=== PATIENT | female | born 1970 | race African-American/Black ===

== ENCOUNTER 2016-11-25 01:32 | Emergency (ER) | payer OTHER ==
[~2016-11-25] VITALS: Ht 165.1 cm; Wt 50.0 kg
[2016-11-25] MEDS ORDERED: SODIUM CHLORIDE 0.9% 500 ML IV ONE (02:19)
[2016-11-25] MEDS ORDERED: ACETAMINOPHEN 325MG TABLET PO ONE (02:30)
[2016-11-25 03:10] LABS: CHLORIDE 107 mEq/L (98-107); HEMATOCRIT. 28.3 % (36.0-48.0); HEMOGLOBIN. 9.4 g/dL (12.0-16.0); MEAN CORPUSCULAR VOLUME 69.4 fL (81.0-99.0); MEAN PLATELET VOLUME 10.4 fl (7.4-10.4); PLATELET 193 x1000/uL (130-400); RED BLOOD CELL COUNT 4.08 mill/uL (4.2-5.4); RED CELL DISTRIBUTION WIDTH 20.2 % (11.6-14.6)
[2016-11-25 03:19] LABS: HCG SCREEN NEGATIVE
[2016-11-25 03:26] LABS: CARBON DIOXIDE 24 mEq/L (21-32)
[2016-11-25 03:27] LABS: CARBAMAZEPINE < 0.5 ug/mL (4-12); PHENYTOIN < 0.4 ug/mL (10-20); VALPROIC ACID < 3.0 ug/mL (50-100)
[2016-11-25 03:28] LABS: PHENOBARBITAL < 2.1 ug/mL (15.0-40.0)
[2016-11-25 04:47] LABS: PLATELET ESTIMATE NORMAL
[2016-11-25 05:10] VITALS: BP 106/60
== END 2016-11-25 05:13 | disposition home or self-care (01) ==
LOC: ER 01:32
DX: R56.9 Unspecified convulsions (principal); R51 Headache
CPT/HCPCS: 36415; 80053; 80156; 80165; 80184; 80185; 84703; 85025; 93005; 96360; 96361; 99285; J7040; Z7610

== ENCOUNTER 2017-02-13 05:59 | Inpatient (IN) | payer OTHER ==
[~2017-02-13] VITALS: Ht 144.8 cm; Wt 46.3 kg
[2017-02-13 07:00] LABS: EOSINOPHILS % 0.6 % (0.0-5.0); HEMATOCRIT. 31.3 % (36.0-48.0); HEMOGLOBIN. 10.2 g/dL (12.0-16.0); LYMPHOCYTES % 12.5 % (20.0-50.0); MEAN CORPUSCULAR HEMOGLOBIN 22.9 pg (28.0-32.0); MEAN CORPUSCULAR VOLUME 70.4 fL (81.0-99.0); MEAN PLATELET VOLUME 10.5 fl (7.4-10.4); MONOCYTES % 8.4 % (2.0-8.0); NEUTROPHILS % 77.5 % (40.0-76.0); PLATELET 195 x1000/uL (130-400); RED BLOOD CELL COUNT 4.44 mill/uL (4.2-5.4); RED CELL DISTRIBUTION WIDTH 19.8 % (11.6-14.6)
[2017-02-13 07:06] LABS: CHLORIDE 110 mEq/L (98-107)
[2017-02-13 07:09] LABS: CARBON DIOXIDE 26 mEq/L (21-32)
[2017-02-13 07:22] LABS: CLARITY URINE CLEAR (CLEAR); COLOR URINE YELLOW (YELLOW); GLUCOSE URINE NEGATIVE (NEGATIVE); KETONES URINE NEGATIVE (NEGATIVE); LEUKOCYTE ESTERASE URINE NEGATIVE (NEGATIVE); NITRITE URINE NEGATIVE (NEGATIVE); OCCULT BLOOD URINE 2+ (NEGATIVE); PROTEIN URINE NEGATIVE (NEGATIVE); SPECIFIC GRAVITY URINE 1.013 (1.005-1.030)
[2017-02-13] MEDS ORDERED: DIAZEPAM 5 MG/ML 2ML CPJ IV ONE (09:30)
[2017-02-13] MEDS ORDERED: LAMOTRIGINE 100MG TABLET PO STA (10:36)
[2017-02-13] MEDS ORDERED: LEVETIRACETAM 500MG PREMIX 100 ML IV ONE (11:00)
[2017-02-13] MEDS ORDERED: LORAZEPAM 2MG/ML CPJ IV PRN (12:00)
[2017-02-13] MEDS ORDERED: ONDANSETRON HCL 4MG/2ML VIAL IV PRN (12:00)
[2017-02-13] MEDS ORDERED: CLONIDINE 0.1MG TABLET PO PRN (12:00)
[2017-02-13] MEDS ORDERED: ACETAMINOPHEN 325MG TABLET PO PRN (12:00)
[2017-02-13 14:15] VITALS: BP 119/57
[2017-02-13 14:22] VITALS: BP 119/57
[2017-02-13 14:58] LABS: *AMPHETAMINES SCREEN URINE NEGATIVE (NEGATIVE); *BARBITURATES SCREEN URINE NEGATIVE (NEGATIVE); *BENZODIAZEPINES SCREEN URINE NEGATIVE (NEGATIVE); *COCAINE SCREEN URINE NEGATIVE (NEGATIVE); CANNABINOID URINE SCREEN NEGATIVE (NEGATIVE); METHADONE URINE SCREEN NEGATIVE (NEGATIVE); OPIATES URINE SCREEN NEGATIVE (NEGATIVE); PHENCYCLIDINE URINE SCREEN NEGATIVE (NEGATIVE)
[2017-02-13 16:22] VITALS: BP 110/60
[2017-02-13 16:48] LABS: CREATINE KINASE 82 IU/L (26-192); TROPONIN I < 0.02 ng/mL (0.00-0.04)
[2017-02-13] MEDS: DEXT 5%/0.45% NACL KCL 20MEQ/L 1,000 ML IV SCH (18:58)
[2017-02-13 20:00] VITALS: BP 126/69
[2017-02-13] MEDS: LEVETIRACETAM 500 MG in SODIUM CHLORIDE 0.9% 100 ML IV SCH (22:27)
[2017-02-13 23:04] LABS: CREATINE KINASE 97 IU/L (26-192); TROPONIN I < 0.02 ng/mL (0.00-0.04)
[2017-02-14] VITALS: BP 113/67
[2017-02-14 04:00] VITALS: BP 113/80
[2017-02-14] MEDS: DEXT 5%/0.45% NACL KCL 20MEQ/L 1,000 ML IV SCH ×2 (04:43→16:41)
[2017-02-14 06:35] LABS: HEMATOCRIT. 31.3 % (36.0-48.0); HEMOGLOBIN. 10.2 g/dL (12.0-16.0); MEAN CORPUSCULAR HEMOGLOBIN 22.8 pg (28.0-32.0); MEAN CORPUSCULAR VOLUME 69.9 fL (81.0-99.0); MEAN PLATELET VOLUME 10.4 fl (7.4-10.4); PLATELET 229 x1000/uL (130-400); RED BLOOD CELL COUNT 4.48 mill/uL (4.2-5.4)
[2017-02-14 06:48] LABS: CHLORIDE 108 mEq/L (98-107)
[2017-02-14 07:07] LABS: CARBON DIOXIDE 24 mEq/L (21-32); HDL CHOLESTEROL 44 mg/dL (40-59); LDL CHOLESTEROL 121 mg/dL (5-100)
[2017-02-14 08:00] VITALS: BP 97/55
[2017-02-14 09:23] LABS: BG BASE EXCESS -0.2 mmol/L (-2.0-2.0); BG CARBOXYHEMOGLOBIN 0.3 % (0.5-1.5); BG DEOXYHEMOGLOBIN 2.7 % (0.0-5.0); BG FRACTION INSPIRED OXYGEN 21; BG HCO3 ACT 23.4 mmol/L (22.0-26.0); BG METHEMOGLOBIN 0.2 % (0.0-1.5); BG OXYGEN SATURATION 97.3 % (92.0-98.5); BG OXYHEMOGLOBIN 96.8 % (94.0-97.0); BG PCO2 34.5 mmHg (35.0-45.0); BG PH 7.449 (7.350-7.450); BG PO2 105.8 mmHg (75.0-100.0); BG SAMPLE SITE RIGHT RADIAL; BG TOTAL HEMOGLOBIN 10.8 g/dL (12.0-18.0); BG VENT MODE ROOM AIR
[2017-02-14 12:00] VITALS: BP 100/56
[2017-02-14 13:21] LABS: PLATELET ESTIMATE NORMAL
[2017-02-14] MEDS: LEVETIRACETAM 500 MG in SODIUM CHLORIDE 0.9% 100 ML IV SCH (13:40)
[2017-02-14 16:00] VITALS: BP 102/58
[2017-02-14 20:00] VITALS: BP 102/52
[2017-02-15] VITALS: BP 110/60
[2017-02-15] MEDS: LEVETIRACETAM 500 MG in SODIUM CHLORIDE 0.9% 100 ML IV SCH ×3 (00:10→20:33)
[2017-02-15] MEDS: DEXT 5%/0.45% NACL KCL 20MEQ/L 1,000 ML IV SCH ×3 (00:10→20:35)
[2017-02-15 04:51] VITALS: BP 108/68
[2017-02-15 06:42] LABS: BASOPHILS % 0.8 % (0.0-2.0); EOSINOPHILS % 2.2 % (0.0-5.0); HEMATOCRIT. 29.7 % (36.0-48.0); HEMOGLOBIN. 9.7 g/dL (12.0-16.0); MEAN CORPUSCULAR HEMOGLOBIN 23.1 pg (28.0-32.0); MEAN CORPUSCULAR VOLUME 70.6 fL (81.0-99.0); MEAN PLATELET VOLUME 10.2 fl (7.4-10.4); MONOCYTES % 12.2 % (2.0-8.0); NEUTROPHILS % 66.8 % (40.0-76.0); PLATELET 213 x1000/uL (130-400); RED BLOOD CELL COUNT 4.21 mill/uL (4.2-5.4); RED CELL DISTRIBUTION WIDTH 19.8 % (11.6-14.6)
[2017-02-15 07:22] LABS: CARBON DIOXIDE 26 mEq/L (21-32); CHLORIDE 110 mEq/L (98-107)
[2017-02-15 08:00] VITALS: BP 105/55
[2017-02-15 11:36] VITALS: BP 99/55
[2017-02-15 16:00] VITALS: BP 115/61
[2017-02-15 20:00] VITALS: BP 108/60
[2017-02-16] VITALS: BP 99/56
[2017-02-16 04:00] VITALS: BP 92/51
[2017-02-16] MEDS: DEXT 5%/0.45% NACL KCL 20MEQ/L 1,000 ML IV SCH (05:46)
[2017-02-16 08:00] VITALS: BP 95/49
[2017-02-16] MEDS: LEVETIRACETAM 500 MG in SODIUM CHLORIDE 0.9% 100 ML IV SCH (09:42)
[2017-02-16] MEDS ORDERED: KEPP500 PO (09:57)
[2017-02-16 12:00] VITALS: BP 99/55
[2017-02-16 13:46] VITALS: BP 99/55
== END 2017-02-16 15:35 | disposition home or self-care (01) | DRG 53 ==
LOC: ER 05:59 → 6WST 11:00 → EDBEDREQ 11:02 → ENRESERV 11:33
PROVIDERS: ADMIT Internal Medicine; ATTEND Internal Medicine
DX: G40.919 Epilepsy, unspecified, intractable, without status epilepticus (principal); D64.9 Anemia, unspecified; R51 Headache; Z86.011 Personal history of benign neoplasm of the brain; Z91.14 Patient's other noncompliance with medication regimen
CPT/HCPCS: 36415; 36600; 70450; 70551; 80048; 80053; 80061; 80185; 80305; 81001; 82375; 82542; 82550; 82805; 84443; 84484; 85025; 93970; 96365; 96375; 99285; G0482; J1953; J7050

== ENCOUNTER 2017-05-11 01:15 | Emergency (ER) | payer MEDICAID, OTHER ==
[~2017-05-11] VITALS: Ht 165.1 cm; Wt 52.0 kg
[~2017-05-11 01:15] MED LIST: KEPP500 PO
[2017-05-11 02:34] LABS: HEMATOCRIT. 31.4 % (36.0-48.0); HEMOGLOBIN. 10.2 g/dL (12.0-16.0); MEAN CORPUSCULAR HEMOGLOBIN 22.3 pg (28.0-32.0); MEAN CORPUSCULAR VOLUME 68.5 fL (81.0-99.0); MEAN PLATELET VOLUME 10.4 fl (7.4-10.4); PLATELET 171 x1000/uL (130-400); RED BLOOD CELL COUNT 4.58 mill/uL (4.2-5.4); RED CELL DISTRIBUTION WIDTH 19.4 % (11.6-14.6)
[2017-05-11 02:35] LABS: CLARITY URINE CLEAR (CLEAR); COLOR URINE YELLOW (YELLOW); KETONES URINE TRACE (NEGATIVE); LEUKOCYTE ESTERASE URINE NEGATIVE (NEGATIVE); NITRITE URINE NEGATIVE (NEGATIVE); OCCULT BLOOD URINE NEGATIVE (NEGATIVE); PH URINE 5.5 (4.5-8.0); PROTEIN URINE NEGATIVE (NEGATIVE); SPECIFIC GRAVITY URINE 1.013 (1.005-1.030)
[2017-05-11 02:45] LABS: *AMPHETAMINES SCREEN URINE NEGATIVE (NEGATIVE); *BARBITURATES SCREEN URINE NEGATIVE (NEGATIVE); *BENZODIAZEPINES SCREEN URINE NEGATIVE (NEGATIVE); *COCAINE SCREEN URINE NEGATIVE (NEGATIVE); CANNABINOID URINE SCREEN NEGATIVE (NEGATIVE); METHADONE URINE SCREEN NEGATIVE (NEGATIVE); OPIATES URINE SCREEN NEGATIVE (NEGATIVE); PHENCYCLIDINE URINE SCREEN NEGATIVE (NEGATIVE)
[2017-05-11 02:51] LABS: CARBON DIOXIDE 22 mEq/L (21-32); CHLORIDE 110 mEq/L (98-107); ETHANOL BLOOD < 10 mg/dL
[2017-05-11] MEDS ORDERED: POTASSIUM CHLORIDE 20MEQ TABLET SR PO ONE (04:45)
[2017-05-11] MEDS ORDERED: ONDANSETRON HCL 4MG/2ML VIAL IV SCH (04:45)
[2017-05-11 05:33] VITALS: BP 104/68
[2017-05-11 06:41] LABS: PLATELET ESTIMATE NORMAL
== END 2017-05-11 05:29 | disposition home or self-care (01) ==
LOC: ER 01:15
DX: G40.909 Epilepsy, unspecified, not intractable, without status epilepticus (principal); E87.6 Hypokalemia; E03.9 Hypothyroidism, unspecified
CPT/HCPCS: 36415; 80053; 80305; 81003; 81025; 82962; 83690; 84443; 85025; 93005; 96374; 99285; G0482; J2405; Z7610

== ENCOUNTER 2018-03-23 09:26 | Emergency (ER) | payer MEDICAID, OTHER ==
[~2018-03-23] VITALS: Ht 162.6 cm; Wt 70.0 kg
[2018-03-23] MEDS ORDERED: SODIUM CHLORIDE 0.9% 1,000 ML IV ONE (11:12)
[2018-03-23] MEDS ORDERED: LEVETIRACETAM 1000MG/100ML 100 ML IV ONE (11:15)
[2018-03-23] MEDS ORDERED: LAMOTRIGINE 25MG TABLET PO STA (12:28)
[2018-03-23 12:45] LABS: HEMATOCRIT. 28.3 % (36.0-48.0); HEMOGLOBIN. 9.3 g/dL (12.0-16.0); MEAN CORPUSCULAR HEMOGLOBIN 22.2 pg (28.0-32.0); MEAN CORPUSCULAR VOLUME 67.9 fL (81.0-99.0); MEAN PLATELET VOLUME 9.7 fl (7.4-10.4); PLATELET 154 x1000/uL (130-400); RED BLOOD CELL COUNT 4.17 mill/uL (4.2-5.4); RED CELL DISTRIBUTION WIDTH 20.5 % (11.6-14.6)
[2018-03-23 12:52] LABS: CHLORIDE 111 mEq/L (98-107)
[2018-03-23 13:03] LABS: ETHANOL BLOOD < 10 mg/dL
[2018-03-23] MEDS: KETOROLAC 30MG/ML VIAL IV NR ×2 (13:05→15:27)
[2018-03-23 13:26] LABS: PLATELET ESTIMATE NORMAL
[2018-03-23 14:12] LABS: CLARITY URINE CLEAR (CLEAR); COLOR URINE YELLOW (YELLOW); KETONES URINE NEGATIVE (NEGATIVE); LEUKOCYTE ESTERASE URINE TRACE (NEGATIVE); NITRITE URINE NEGATIVE (NEGATIVE); OCCULT BLOOD URINE NEGATIVE (NEGATIVE); PROTEIN URINE NEGATIVE (NEGATIVE); SPECIFIC GRAVITY URINE 1.011 (1.005-1.030)
[2018-03-23 15:05] LABS: *AMPHETAMINES SCREEN URINE NEGATIVE (NEGATIVE); *BARBITURATES SCREEN URINE NEGATIVE (NEGATIVE); *BENZODIAZEPINES SCREEN URINE NEGATIVE (NEGATIVE)
[2018-03-23 15:06] LABS: *COCAINE SCREEN URINE NEGATIVE (NEGATIVE); CANNABINOID URINE SCREEN NEGATIVE (NEGATIVE); METHADONE URINE SCREEN NEGATIVE (NEGATIVE); OPIATES URINE SCREEN NEGATIVE (NEGATIVE); PHENCYCLIDINE URINE SCREEN NEGATIVE (NEGATIVE)
[2018-03-23] MEDS ORDERED: CEFTRIAXONE 2 G PREMIX 50 ML IV ONE (15:15)
[2018-03-23 16:21] VITALS: BP 95/58
[2018-03-24] MEDS ORDERED: LAMOTRIGINE 25MG TABLET PO SCH (09:00)
== END 2018-03-23 16:25 | disposition home or self-care (01) ==
LOC: ER 09:26
DX: G40.909 Epilepsy, unspecified, not intractable, without status epilepticus (principal); Z86.03 Personal history of neoplasm of uncertain behavior; R51 Headache
CPT/HCPCS: 36415; 70450; 80053; 80305; 81003; 81025; 85025; 87077; 87086; 87186; 93005; 96365; 96375; 96376; 99285; G0482; J0696; J1885; J1953; J7030

== ENCOUNTER 2018-11-25 05:56 | Emergency (ER) | payer MEDICAID, OTHER ==
[~2018-11-25] VITALS: Ht 157.5 cm; Wt 50.0 kg
[2018-11-25 06:51] LABS: BASOPHILS % 1.2 % (0.0-2.0); EOSINOPHILS % 2.7 % (0.0-5.0); HEMATOCRIT. 28.7 % (36.0-48.0); HEMOGLOBIN. 9.4 g/dL (12.0-16.0); LYMPHOCYTES % 36.5 % (20.0-50.0); MEAN CORPUSCULAR VOLUME 67.3 fL (81.0-99.0); MEAN PLATELET VOLUME 8.8 fl (7.4-10.4); MONOCYTES % 14.1 % (2.0-8.0); NEUTROPHILS % 45.5 % (40.0-76.0); PLATELET 210 x1000/uL (130-400); RED BLOOD CELL COUNT 4.26 mill/uL (4.2-5.4); RED CELL DISTRIBUTION WIDTH 20.3 % (11.6-14.6)
[2018-11-25 06:52] LABS: CLARITY URINE CLEAR (CLEAR); COLOR URINE YELLOW (YELLOW); KETONES URINE NEGATIVE (NEGATIVE); LEUKOCYTE ESTERASE URINE NEGATIVE (NEGATIVE); NITRITE URINE NEGATIVE (NEGATIVE); OCCULT BLOOD URINE NEGATIVE (NEGATIVE); PROTEIN URINE NEGATIVE (NEGATIVE); SPECIFIC GRAVITY URINE 1.009 (1.005-1.030)
[2018-11-25 06:57] LABS: CHLORIDE 109 mEq/L (98-107)
[2018-11-25 07:01] LABS: ETHANOL BLOOD < 10 mg/dL
[2018-11-25 07:08] LABS: *AMPHETAMINES SCREEN URINE NEGATIVE (NEGATIVE); *BARBITURATES SCREEN URINE NEGATIVE (NEGATIVE); *BENZODIAZEPINES SCREEN URINE NEGATIVE (NEGATIVE); *COCAINE SCREEN URINE NEGATIVE (NEGATIVE); METHADONE URINE SCREEN NEGATIVE (NEGATIVE); OPIATES URINE SCREEN NEGATIVE (NEGATIVE); PHENCYCLIDINE URINE SCREEN NEGATIVE (NEGATIVE)
[2018-11-25 07:09] LABS: CANNABINOID URINE SCREEN NEGATIVE (NEGATIVE)
[2018-11-25] MEDS ORDERED: LAMOTRIGINE 100MG TABLET PO STA (07:22)
[2018-11-25 07:30] VITALS: BP 109/61
[2018-11-25 07:47] LABS: PLATELET ESTIMATE NORMAL
== END 2018-11-25 08:57 | disposition home or self-care (01) ==
LOC: ER 05:56
DX: G40.89 Other seizures (principal); Z79.899 Other long term (current) drug therapy
CPT/HCPCS: 36415; 80305; 80320; 81025; 82962; 99283; G0480

== ENCOUNTER 2019-03-01 20:42 | Emergency (ER) | payer OTHER ==
[~2019-03-01] VITALS: Ht 157.5 cm; Wt 55.0 kg
[2019-03-01] MEDS ORDERED: LAMOTRIGINE 25MG TABLET PO STA (22:12)
[2019-03-01] MEDS ORDERED: SODIUM CHLORIDE 0.9% 1,000 ML IV ONE (22:12)
[2019-03-01] MEDS ORDERED: ACETAMINOPHEN 325MG TABLET PO ONE (22:15)
[2019-03-01 23:02] LABS: BASOPHILS % 1.1 % (0.0-2.0); EOSINOPHILS % 0.3 % (0.0-5.0); HEMOGLOBIN. 9.5 g/dL (12.0-16.0); LYMPHOCYTES % 13.1 % (20.0-50.0); MEAN CORPUSCULAR HEMOGLOBIN 22.3 pg (28.0-32.0); MEAN CORPUSCULAR VOLUME 67.8 fL (81.0-99.0); MEAN PLATELET VOLUME 9.8 fl (7.4-10.4); MONOCYTES % 8.9 % (2.0-8.0); NEUTROPHILS % 76.6 % (40.0-76.0); PLATELET 209 x1000/uL (130-400); RED BLOOD CELL COUNT 4.27 mill/uL (4.2-5.4); RED CELL DISTRIBUTION WIDTH 19.8 % (11.6-14.6)
[2019-03-01 23:11] LABS: HCG SCREEN NEGATIVE
[2019-03-01 23:14] LABS: CHLORIDE 109 mEq/L (98-107)
[2019-03-01 23:15] LABS: PLATELET ESTIMATE NORMAL
[2019-03-02] VITALS: BP 122/52
== END 2019-03-02 00:03 | disposition home or self-care (01) ==
LOC: ER 20:42
DX: G40.909 Epilepsy, unspecified, not intractable, without status epilepticus (principal); R03.0 Elevated blood-pressure reading, without diagnosis of hypertension; D64.9 Anemia, unspecified; R51 Headache
CPT/HCPCS: 36415; 80053; 82962; 84703; 85025; 99283; J7030

== ENCOUNTER 2019-05-03 09:01 | Emergency (ER) | payer OTHER ==
[~2019-05-03] VITALS: Ht 149.9 cm; Wt 48.0 kg
[2019-05-03] MEDS ORDERED: IBUPROFEN 600MG TABLET PO STA (11:04)
[2019-05-03 12:34] VITALS: BP 100/50
== END 2019-05-03 12:34 | disposition home or self-care (01) ==
LOC: ER 09:01
DX: M79.645 Pain in left finger(s) (principal)
CPT/HCPCS: 73140; 99283

== ENCOUNTER 2019-12-19 18:48 | Emergency (ER) | payer OTHER ==
[~2019-12-19] VITALS: Ht 162.6 cm; Wt 50.0 kg
[2019-12-19] MEDS ORDERED: SODIUM CHLORIDE 0.9% 1,000 ML IV ONE (21:27)
[2019-12-19] MEDS ORDERED: KETOROLAC 30MG/ML VIAL IV STA (21:27)
[2019-12-19] MEDS ORDERED: ONDANSETRON HCL 4MG/2ML INJ IV STA (21:27)
[2019-12-19 22:04] LABS: HEMATOCRIT. 29.3 % (36.0-48.0); HEMOGLOBIN. 9.2 g/dL (12.0-16.0); MEAN CORPUSCULAR VOLUME 66.6 fL (81.0-99.0); MEAN PLATELET VOLUME 10.1 fl (7.4-10.4); PLATELET 228 x1000/uL (130-400); RED BLOOD CELL COUNT 4.39 mill/uL (4.2-5.4); RED CELL DISTRIBUTION WIDTH 19.8 % (11.6-14.6)
[2019-12-19 22:09] LABS: CHLORIDE 106 mEq/L (98-107)
[2019-12-19 22:10] LABS: CLARITY URINE CLEAR (CLEAR); COLOR URINE YELLOW (YELLOW); KETONES URINE TRACE (NEGATIVE); LEUKOCYTE ESTERASE URINE 1+ (NEGATIVE); NITRITE URINE POSITIVE (NEGATIVE); OCCULT BLOOD URINE NEGATIVE (NEGATIVE); PH URINE 6.5 (4.5-8.0); PROTEIN URINE NEGATIVE (NEGATIVE); SPECIFIC GRAVITY URINE 1.013 (1.005-1.030)
[2019-12-19 22:14] LABS: ETHANOL BLOOD < 10 mg/dL
[2019-12-19 22:25] LABS: HCG SCREEN NEGATIVE
[2019-12-19 22:30] LABS: *AMPHETAMINES SCREEN URINE NEGATIVE (NEGATIVE)
[2019-12-19] MEDS ORDERED: CEFTRIAXONE 1 G PREMIX 50 ML IV ONE (22:30)
[2019-12-19 22:31] LABS: *BENZODIAZEPINES SCREEN URINE NEGATIVE (NEGATIVE); *COCAINE SCREEN URINE NEGATIVE (NEGATIVE); CANNABINOID URINE SCREEN NEGATIVE (NEGATIVE); METHADONE URINE SCREEN NEGATIVE (NEGATIVE); OPIATES URINE SCREEN NEGATIVE (NEGATIVE); PHENCYCLIDINE URINE SCREEN NEGATIVE (NEGATIVE)
[2019-12-19 22:32] LABS: *BARBITURATES SCREEN URINE NEGATIVE (NEGATIVE)
[2019-12-19 22:43] LABS: PLATELET ESTIMATE NORMAL
[2019-12-19] MEDS ORDERED: LEVETIRACETAM 500MG TABLET PO ONE (22:45)
[2019-12-19 23:50] VITALS: BP 131/72
== END 2019-12-20 00:30 | disposition home or self-care (01) ==
LOC: ER 18:48
DX: G40.909 Epilepsy, unspecified, not intractable, without status epilepticus (principal); N30.90 Cystitis, unspecified without hematuria
CPT/HCPCS: 36415; 74176; 80053; 80305; 80320; 81003; 81025; 83690; 84703; 85025; 93005; 96365; 96375; 99285; J0696; J1885; J2405; J7030; G0480

== ENCOUNTER 2021-05-16 21:39 | Emergency (ER) | payer MEDICAID, OTHER ==
[~2021-05-16] VITALS: Ht 160 cm; Wt 65.0 kg
[2021-05-16] MEDS ORDERED: MORPHINE SULFATE 4 MG/ML CPJ (NOT FOR IM USE) IV STA (23:20)
[2021-05-16] MEDS ORDERED: ONDANSETRON HCL 4MG/2ML INJ IV STA (23:20)
[2021-05-16] MEDS ORDERED: LEVETIRACETAM 500MG PREMIX 100 ML IV ONE (23:30)
[2021-05-16 23:48] LABS: HEMATOCRIT. 24.7 % (36.0-48.0); HEMOGLOBIN. 7.7 g/dL (12.0-16.0); MEAN CORPUSCULAR HEMOGLOBIN 18.8 pg (28.0-32.0); MEAN CORPUSCULAR VOLUME 60.2 fL (81.0-99.0); MEAN PLATELET VOLUME 9.1 fl (7.4-10.4); PLATELET 206 x1000/uL (130-400); RED CELL DISTRIBUTION WIDTH 20.4 % (11.6-14.6)
[2021-05-16 23:50] LABS: CHLORIDE 111 mEq/L (98-107)
[2021-05-16] MEDS ORDERED: LAMOTRIGINE 25MG TABLET PO STA (23:52)
[2021-05-17 03:20] LABS: PLATELET ESTIMATE NORMAL
[2021-05-17 03:50] VITALS: BP 100/48
== END 2021-05-17 03:50 | disposition home or self-care (01) ==
LOC: ER 21:39
DX: R56.9 Unspecified convulsions (principal); Z98.890 Other specified postprocedural states
CPT/HCPCS: 36415; 80053; 85025; 93005; 96374; 96375; 99285

== ENCOUNTER 2023-08-08 19:26 | Emergency (ER) | payer OTHER, MEDICAID ==
[~2023-08-08] VITALS: Ht 162.6 cm; Wt 58.0 kg
[~2023-08-08 19:26] MED LIST changes: +FERR325T6 MT; -KEPP500 PO; +LAM25 PO; +LEVO50TA8 PO; +ZONI100C45 PO
[2023-08-08 19:59] VITALS: O2SAT 99
[2023-08-08] MEDS: IBUPROFEN 600MG TABLET PO ONE (22:50)
[2023-08-08 22:59] VITALS: BP 136/51; PULSE 79; RESP 18; TEMP 98.1
== END 2023-08-08 23:00 | disposition home or self-care (01) ==
LOC: ER 19:26
DX: S09.90XA Unspecified injury of head, initial encounter (principal); Z98.890 Other specified postprocedural states; Z88.8 Allergy status to other drugs, medicaments and biological substances; X58.XXXA Exposure to other specified factors, initial encounter; Y93.89 Activity, other specified; Y92.89 Other specified places as the place of occurrence of the external cause; Y99.8 Other external cause status
CPT/HCPCS: 81025; 99284

== ENCOUNTER 2024-06-20 14:01 | Emergency (ER) | payer MEDICAID ==
[~2024-06-20] VITALS: Ht 160 cm; Wt 50.0 kg
[~2024-06-20 14:01] MED LIST changes: -LAM25 PO; +LAMO25TA9 MT; -ZONI100C45 PO
[2024-06-20 14:05] VITALS: O2SAT 99
[2024-06-20 14:26] VITALS: TEMP 36.9
[2024-06-20] MEDS: PHENYTOIN SODIUM EXTENDED 100MG CAPSULE PO ONE (14:50)
[2024-06-20] MEDS: SODIUM CHLORIDE 0.9% 1,000 ML IV ONE (14:50)
[2024-06-20 17:56] LABS: CHLORIDE 110 mEq/L (98-107); POTASSIUM 3.8 mEq/L (3.5-5.1); SODIUM 141 mEq/L (136-145)
[2024-06-20 17:57] LABS: CALCIUM 8.7 mg/dL (8.7-10.4); CARBON DIOXIDE 25 mEq/L (21-32); PROTHROMBIN TIME 11.1 sec (9.6-11.0)
[2024-06-20 18:00] LABS: HEMATOCRIT. 30.3 % (36.0-48.0); HEMOGLOBIN. 9.1 g/dL (12.0-16.0); MEAN CORPUSCULAR HEMOGLOBIN 22.3 pg (28.0-32.0); MEAN CORPUSCULAR VOLUME 74.5 fL (81.0-99.0); MEAN PLATELET VOLUME 9.1 fl (7.4-10.4); PLATELET 183 x1000/uL (130-400); RED BLOOD CELL COUNT 4.06 mill/uL (4.2-5.4); RED CELL DISTRIBUTION WIDTH 26.8 % (11.6-14.6); WHITE BLOOD COUNT 4.9 x1000/uL (4.5-11.0)
[2024-06-20 18:02] LABS: CREATININE 0.5 mg/dL (0.6-1.0); GLUCOSE 100 mg/dL (70-105)
[2024-06-20 18:03] LABS: DIFFERENTIAL COMMENT 1; PHENYTOIN 5.3 ug/mL (10-20); UREA NITROGEN BLOOD 6 mg/dL (9-23)
[2024-06-20 18:05] LABS: CARBAMAZEPINE < 0.4 ug/mL (4-12); ETHANOL BLOOD < 10 mg/dL (<10); VALPROIC ACID < 3.0 ug/mL (50-100)
[2024-06-20 18:06] LABS: THYROID STIMULATING HORMONE 2.24 uIU/mL (0.55-4.78)
[2024-06-20 19:48] VITALS: BP 108/53; PULSE 71; RESP 17; O2SAT 100
[2024-06-20 19:56] LABS: CLARITY URINE CLEAR (CLEAR); COLOR URINE YELLOW (YELLOW); GLUCOSE URINE NEGATIVE (NEGATIVE); KETONES URINE NEGATIVE (NEGATIVE); LEUKOCYTE ESTERASE URINE NEGATIVE (NEGATIVE); NITRITE URINE NEGATIVE (NEGATIVE); OCCULT BLOOD URINE NEGATIVE (NEGATIVE); PROTEIN URINE NEGATIVE (NEGATIVE); SPECIFIC GRAVITY URINE 1.005 (1.005-1.030)
[2024-06-20 20:03] LABS: *AMPHETAMINES SCREEN URINE NEGATIVE (NEGATIVE); *BARBITURATES SCREEN URINE NEGATIVE (NEGATIVE); *BENZODIAZEPINES SCREEN URINE NEGATIVE (NEGATIVE); *COCAINE SCREEN URINE NEGATIVE (NEGATIVE); CANNABINOID URINE SCREEN NEGATIVE (NEGATIVE); ECSTASY MDMA SCREEN URINE NEGATIVE (NEGATIVE); METHADONE URINE SCREEN NEGATIVE (NEGATIVE); OPIATES URINE SCREEN NEGATIVE (NEGATIVE); PHENCYCLIDINE URINE SCREEN NEGATIVE (NEGATIVE)
[2024-06-20 20:30] LABS: ANISOCYTOSIS 2+; HYPOCHROMASIA 1+; MICROCYTOSIS 2+; PLATELET ESTIMATE NORMAL
[2024-06-20 20:31] LABS: OVALOCYTES 1+
== END 2024-06-20 20:11 | disposition home or self-care (01) ==
LOC: ER 14:01
DX: G40.909 Epilepsy, unspecified, not intractable, without status epilepticus (principal); Z98.890 Other specified postprocedural states; Z88.8 Allergy status to other drugs, medicaments and biological substances
CPT/HCPCS: 80305; 80048; 81003; 80320; 80156; 80185; 84443; 80165; 85025; 85610; 36415; 96360; 99284; J7030; G0480

== ENCOUNTER 2024-08-04 06:24 | Emergency (ER) | payer MEDICAID ==
[~2024-08-04] VITALS: Ht 157.5 cm; Wt 60.0 kg
[2024-08-04 06:28] VITALS: O2SAT 96
[2024-08-04] MEDS: SODIUM CHLORIDE 0.9% 1,000 ML IV ONE (07:04)
[2024-08-04 07:09] LABS: BASOPHILS % 1.6 % (0.0-2.0); EOSINOPHILS % 2.2 % (0.0-5.0); HEMATOCRIT. 29.6 % (36.0-48.0); HEMOGLOBIN. 9.2 g/dL (12.0-16.0); LYMPHOCYTES % 26.7 % (20.0-50.0); MEAN CORPUSCULAR HEMOGLOBIN 20.4 pg (28.0-32.0); MEAN CORPUSCULAR HGB CONC 31.1 g/dL (31.0-37.0); MEAN CORPUSCULAR VOLUME 65.6 fL (81.0-99.0); MEAN PLATELET VOLUME 9.4 fl (7.4-10.4); MONOCYTES % 6.6 % (2.0-8.0); NEUTROPHILS % 62.9 % (40.0-76.0); PLATELET 261 x1000/uL (130-400); RED BLOOD CELL COUNT 4.51 mill/uL (4.2-5.4); RED CELL DISTRIBUTION WIDTH 19.5 % (11.6-14.6); WHITE BLOOD COUNT 4.2 x1000/uL (4.5-11.0)
[2024-08-04] MEDS: PHENYTOIN SODIUM 500 MG in SODIUM CHLORIDE 0.9% 50 ML IV ONE (07:16)
[2024-08-04] MEDS: LAMOTRIGINE 150MG TABLET PO ONE (07:17)
[2024-08-04 07:18] LABS: ADD RBC MORPHOLOGY YES; DIFFERENTIAL COMMENT 1
[2024-08-04 07:21] LABS: CHLORIDE 105 mEq/L (98-107); POTASSIUM 3.2 mEq/L (3.5-5.1); SODIUM 140 mEq/L (136-145)
[2024-08-04 07:22] LABS: CARBON DIOXIDE 23 mEq/L (21-32)
[2024-08-04 07:23] LABS: CALCIUM 8.8 mg/dL (8.7-10.4)
[2024-08-04 07:27] LABS: CREATININE 0.6 mg/dL (0.6-1.0); GLUCOSE 129 mg/dL (70-105); UREA NITROGEN BLOOD 9 mg/dL (9-23)
[2024-08-04 07:39] LABS: ETHANOL BLOOD < 10 mg/dL (<10)
[2024-08-04 08:27] LABS: CLARITY URINE CLEAR (CLEAR); COLOR URINE YELLOW (YELLOW); GLUCOSE URINE NEGATIVE (NEGATIVE); KETONES URINE NEGATIVE (NEGATIVE); LEUKOCYTE ESTERASE URINE NEGATIVE (NEGATIVE); NITRITE URINE NEGATIVE (NEGATIVE); OCCULT BLOOD URINE TRACE (NEGATIVE); PROTEIN URINE TRACE (NEGATIVE)
[2024-08-04 08:44] LABS: *AMPHETAMINES SCREEN URINE NEGATIVE (NEGATIVE); *BENZODIAZEPINES SCREEN URINE NEGATIVE (NEGATIVE)
[2024-08-04 08:45] LABS: *BARBITURATES SCREEN URINE NEGATIVE (NEGATIVE); *COCAINE SCREEN URINE NEGATIVE (NEGATIVE); METHADONE URINE SCREEN NEGATIVE (NEGATIVE); OPIATES URINE SCREEN NEGATIVE (NEGATIVE); PHENCYCLIDINE URINE SCREEN NEGATIVE (NEGATIVE)
[2024-08-04 08:46] LABS: CANNABINOID URINE SCREEN NEGATIVE (NEGATIVE); ECSTASY MDMA SCREEN URINE NEGATIVE (NEGATIVE)
[2024-08-04 09:09] LABS: BACTERIA URINE FEW; RBC URINE 0-2 /hpf (0-2); SQUAMOUS EPITHELIAL CELL URINE 1+ /lpf (RARE/1+); WBC URINE 0-2 /hpf (0-2); YEAST URINE NONE SEEN
[2024-08-04] MEDS ORDERED: FUROSEMIDE 40MG/4ML VIAL IV ONE (09:30)
[2024-08-04 10:09] LABS: INR 1.1; PROTHROMBIN TIME 11.4 sec (9.6-11.0)
[2024-08-04 10:12] LABS: TROPONIN I HIGH SENSITIVITY < 4 ng/L (3.0-34)
[2024-08-04] MEDS: POTASSIUM CHLORIDE 20MEQ TABLET SR PO ONE (10:27)
[2024-08-04 10:28] VITALS: BP 110/53; PULSE 60; RESP 16; TEMP 36.9; O2SAT 98
[2024-08-05 08:29] LABS: ANISOCYTOSIS 2+; MICROCYTOSIS 3+; PLATELET ESTIMATE NORMAL
== END 2024-08-04 10:34 | disposition home or self-care (01) ==
LOC: ER 06:24 → CANBEDREQ 10:03 → ER 10:34
DX: G40.909 Epilepsy, unspecified, not intractable, without status epilepticus (principal); D64.9 Anemia, unspecified; E87.6 Hypokalemia; Z88.8 Allergy status to other drugs, medicaments and biological substances; Z98.890 Other specified postprocedural states
CPT/HCPCS: 80305; 80048; 81003; 80320; 83880; 85025; 85610; 84484; 36415; 71045; 93005; 96365; 96366; 99285; J1165; J7030; G0480

== ENCOUNTER 2024-08-19 05:22 | Emergency (ER) | payer MEDICAID ==
[~2024-08-19] VITALS: Ht 162.6 cm; Wt 60.0 kg
[~2024-08-19 05:22] MED LIST changes: +LAMO-21 MT; -LAMO25TA9 MT
[2024-08-19 05:25] VITALS: O2SAT 95
[2024-08-19 06:57] LABS: BASOPHILS % 1.7 % (0.0-2.0); EOSINOPHILS % 1.8 % (0.0-5.0); HEMOGLOBIN. 9.1 g/dL (12.0-16.0); LYMPHOCYTES % 22.2 % (20.0-50.0); MEAN CORPUSCULAR HEMOGLOBIN 19.8 pg (28.0-32.0); MEAN CORPUSCULAR HGB CONC 30.4 g/dL (31.0-37.0); MEAN CORPUSCULAR VOLUME 65.1 fL (81.0-99.0); MEAN PLATELET VOLUME 9.9 fl (7.4-10.4); MONOCYTES % 11.8 % (2.0-8.0); NEUTROPHILS % 62.5 % (40.0-76.0); PLATELET 288 x1000/uL (130-400); RED CELL DISTRIBUTION WIDTH 19.8 % (11.6-14.6); WHITE BLOOD COUNT 4.9 x1000/uL (4.5-11.0)
[2024-08-19 07:05] LABS: DIFFERENTIAL COMMENT 1
[2024-08-19 07:06] LABS: ADD RBC MORPHOLOGY YES; CHLORIDE 107 mEq/L (98-107); POTASSIUM 3.5 mEq/L (3.5-5.1); SODIUM 140 mEq/L (136-145)
[2024-08-19 07:07] LABS: CALCIUM 9.2 mg/dL (8.7-10.4); CARBON DIOXIDE 24 mEq/L (21-32)
[2024-08-19 07:12] LABS: CREATININE 0.5 mg/dL (0.6-1.0); GLUCOSE 101 mg/dL (70-105); UREA NITROGEN BLOOD 9 mg/dL (9-23)
[2024-08-19] MEDS: PHENYTOIN SODIUM 1,000 MG in SODIUM CHLORIDE 0.9% 100 ML IV ONE (07:12)
[2024-08-19 07:49] LABS: ANISOCYTOSIS 2+; HYPOCHROMASIA 1+; MICROCYTOSIS 3+; PLATELET ESTIMATE NORMAL
[2024-08-19 10:15] VITALS: BP 107/53; PULSE 76; RESP 15; TEMP 36.8; O2SAT 100
[2024-09-06] MEDS ORDERED: POTA-204 MT (02:21)
[2024-10-05] MEDS ORDERED: LACO100T2 PO (09:52)
[2024-10-05] MEDS ORDERED: LAM25 PO (09:52)
== END 2024-08-19 10:45 | disposition home or self-care (01) ==
LOC: ER 05:22
DX: G40.909 Epilepsy, unspecified, not intractable, without status epilepticus (principal); Z98.890 Other specified postprocedural states; Z79.899 Other long term (current) drug therapy; Z88.8 Allergy status to other drugs, medicaments and biological substances
CPT/HCPCS: 99285; 96365; 80048; 82962; 85025; 36415; J1165; J7050

== ENCOUNTER 2024-10-22 21:06 | Emergency (ER) | payer MEDICAID ==
[~2024-10-22] VITALS: Ht 167.6 cm; Wt 50.0 kg
[~2024-10-22 21:06] MED LIST changes: +LACO100T2 PO; +LAM25 PO; -LAMO-21 MT; +POTA-204 MT
[2024-10-22 21:11] VITALS: O2SAT 98
[2024-10-22 21:52] VITALS: TEMP 36.9
[2024-10-22 21:54] LABS: CHLORIDE 105 mEq/L (98-107); HEMATOCRIT. 21.4 % (36.0-48.0); MEAN CORPUSCULAR HEMOGLOBIN 18.7 pg (28.0-32.0); MEAN CORPUSCULAR HGB CONC 30.5 g/dL (31.0-37.0); MEAN CORPUSCULAR VOLUME 61.4 fL (81.0-99.0); MEAN PLATELET VOLUME 9.1 fl (7.4-10.4); PLATELET 297 x1000/uL (130-400); RED BLOOD CELL COUNT 3.48 mill/uL (4.2-5.4); RED CELL DISTRIBUTION WIDTH 23.6 % (11.6-14.6); SODIUM 140 mEq/L (136-145); WHITE BLOOD COUNT 4.5 x1000/uL (4.5-11.0)
[2024-10-22 21:55] LABS: CARBON DIOXIDE 24 mEq/L (21-32)
[2024-10-22 21:56] LABS: CALCIUM 8.8 mg/dL (8.7-10.4)
[2024-10-22] MEDS: LAMOTRIGINE 100MG TABLET PO SCH (21:56)
[2024-10-22 21:58] LABS: HEMOGLOBIN. 6.5 g/dL (12.0-16.0)
[2024-10-22 21:59] LABS: DIFFERENTIAL COMMENT 1
[2024-10-22 22:00] LABS: CREATININE 0.6 mg/dL (0.6-1.0)
[2024-10-22 22:01] LABS: ETHANOL BLOOD < 10 mg/dL (<10); GLUCOSE 106 mg/dL (70-105); UREA NITROGEN BLOOD 6 mg/dL (9-23)
[2024-10-22 22:20] LABS: ANISOCYTOSIS 2+; PLATELET ESTIMATE NORMAL
[2024-10-22 22:21] LABS: HYPOCHROMASIA 3+; MICROCYTOSIS 3+; TARGET CELLS 1+
[2024-10-22] MEDS: KCL 20MEQ/100ML PREMIX 100 ML IV SCH (22:30)
[2024-10-22 23:56] VITALS: BP 121/56; PULSE 73; RESP 21; O2SAT 98
== END 2024-10-23 | disposition left against medical advice (07) ==
LOC: ER 21:06
DX: R56.9 Unspecified convulsions (principal); D64.9 Anemia, unspecified; Z79.899 Other long term (current) drug therapy
CPT/HCPCS: 80048; 80320; 82962; 85025; 36415; 99291; Z7610 ×3; 86850; 86900; 86920; A4606; G0480